=== PATIENT | male | born 1990 | race Caucasian/White ===

== ENCOUNTER 2025-04-14 13:49 | Emergency (ER) | payer SELFPAY ==
[~2025-04-14] VITALS: Ht 172.7 cm; Wt 80.0 kg
[2025-04-14 13:50] VITALS: O2SAT 100
[2025-04-14 13:54] VITALS: TEMP 37.2; O2SAT 100
[2025-04-14] MEDS ORDERED: LIDO-53 TP (14:45)
[2025-04-14] MEDS ORDERED: IBUP-2028 MT (14:45)
[2025-04-14] MEDS ORDERED: ACET-2708 MT (14:45)
[2025-04-14 15:01] VITALS: BP 138/55; PULSE 90; RESP 16
[2025-04-14] MEDS: KETOROLAC 30MG/ML VIAL IM ONE (15:01)
== END 2025-04-14 15:03 | disposition home or self-care (01) ==
LOC: ER 14:09
DX: M25.512 Pain in left shoulder (principal); I10 Essential (primary) hypertension
CPT/HCPCS: 99282; J1885